=== PATIENT | male | born 1975 | race Caucasian/White ===

== ENCOUNTER 2017-02-06 13:42 | Emergency (ER) | payer MEDICAID ==
[~2017-02-06] VITALS: Ht 160 cm; Wt 71.5 kg
[2017-02-06 13:52] VITALS: Ht 160 cm; Wt 71.5 kg
[2017-02-06 14:57] LABS: URINE BLOOD (Dip) POC 3+ (NEGATIVE)
[2017-02-06] MEDS ORDERED: ONDANSETRON (ODT) 4 MG TAB ODT STA (15:02)
--- NOTE | 2017-02-06 15:05 | ERD ---
ER Documentation Chief Complaint Chief Complaint RIGHT SIDE BACK PAIN SINCE AM HPI 41-year-old male woke up this morning with sharp right-sided low back pain that goes to his mid and flank region starting this morning. The patient states that he woke up with the pain, and had some nausea vomiting this morning and reports hematuria that occurred last week and resolved. He also states that he did some lifting yesterday and he was moving some furniture but denies any injuries at this time. He denies fevers or chills. He denies saddle anesthesia loss of bowel bladder function. ROS All systems reviewed and are negative except as per history of present illness. Medications Home Meds Active Scripts Hydrocodone/Acetaminophen (Armour 5-325 Tablet) 1 Each Tablet, 1 TAB PO Q6H Y for PAIN, #7 TAB Prov:CLARY CHAEVZ PA-C 02/06/17 Ondansetron (Ondansetron Odt) 4 Mg Tab.rapdis, 4 MG PO Q6H Y for NAUSEA AND/OR VOMITING, #10 TAB Prov:CLARY CHAVEZ PA-C 02/06/17 Ibuprofen* (Motrin*) 600 Mg Tab, 600 MG PO Q6, #30 TAB Prov:CLARY CHAVEZ PA-C 02/06/17 Allergies Allergies: Coded Allergies: No Known Allergy (Unverified , 02/06/17) PMhx/Soc History of Surgery: No Anesthesia Reaction: No Hx Neurological Disorder: No Hx Respiratory Disorders: No Hx Cardiac Disorders: No Hx Psychiatric Problems: No Hx Miscellaneous Medical Probl: No Hx Alcohol Use: No Hx Substance Use: No Hx Tobacco Use: Yes Smoking Status: Current some day smoker Physical Exam Vitals Vital Signs Date Time Temp Pulse Resp B/P Pulse Ox O2 Delivery O2 Flow Rate FiO2 02/06/17 13:52 98.9 56 18 142/77 97 Physical Exam General: Well-developed, well-nourished. The patient appears in no acute distress. HEENT: Head is normocephalic, atraumatic. No scleral icterus. Neck: Supple. Nontender. Lungs: Clear to auscultation. Normal air movement. Heart: Regular rate and rhythm. S1 and S2 are normal. No murmurs, gallops, or rubs. Abdomen: Soft, nontender, nondistended. Bowel sounds are normoactive. Back: There is no midline tenderness, no rashes, sacroiliac tenderness on the right side, no CVA tenderness. Extremities: No clubbing or cyanosis. Normal pulses. Moving extremities x 4. No weakness. Neurologic: Alert and oriented 3. No focal deficits. Skin: Normal turgor. No rash or lesions. Result Diagram: 02/06/17 1500 02/06/17 1500 Results 24 hrs Laboratory Tests Test 02/06/17 14:57 02/06/17 15:00 Bedside Urine pH (LAB) 6.5 Bedside Urine Protein (LAB) 2+ Bedside Urine Glucose (UA) Negative Bedside Urine Ketones (LAB) Negative Bedside Urine Blood 3+ Bedside Urine Nitrite (LAB) Negative Bedside Urine Leukocyte Esterase (L Negative White Blood Count 12.710^3/ul Red Blood Count 5.1410^6/ul Hemoglobin 15.3g/dl Hematocrit 44.7% Mean Corpuscular Volume 87.0fl Mean Corpuscular Hemoglobin 29.8pg Mean Corpuscular Hemoglobin Concent 34.2g/dl Red Cell Distribution Width 13.2% Platelet Count 90102^3/UL Mean Platelet Volume 11.1fl Neutrophils % 81.1% Lymphocytes % 12.2% Monocytes % 5.1% Eosinophils % 0.4% Basophils % 0.5% Nucleated Red Blood Cells % 0.0/100WBC Neutrophils # 10.310^3/ul Lymphocytes # 1.510^3/ul Monocytes # 0.710^3/ul Eosinophils # 0.110^3/ul Basophils # 0.110^3/ul Nucleated Red Blood Cells # 0.010^3/ul Sodium Level 142mmol/L Potassium Level 4.6mmol/L Chloride Level 105mmol/L Carbon Dioxide Level 26mmol/L Anion Gap 16 Blood Urea Nitrogen 26mg/dl Creatinine 1.02mg/dl Glucose Level 93mg/dl Calcium Level 9.4mg/dl Total Bilirubin 1.1mg/dl Direct Bilirubin 0.00mg/dl Indirect Bilirubin 1.1mg/dl Aspartate Amino Transf (AST/SGOT) 31IU/L Alanine Aminotransferase (ALT/SGPT) 26IU/L Alkaline Phosphatase 81IU/L Total Protein 8.1g/dl Albumin 4.8g/dl Globulin 3.30g/dl Albumin/Globulin Ratio 1.45 Lipase 14U/L Current Medications Medications (Trade) Dose Ordered Sig/Markus Route PRN Reason Start Time Stop Time Status Last Admin Dose Admin Ibuprofen (Motrin) 600 mg ONCE ONCE PO 02/06/17 15:30 02/06/17 15:31 DC 02/06/17 15:17 Ondansetron HCl (Zofran Odt) 4 mg ONCE STAT ODT 02/06/17 15:02 02/06/17 15:03 DC 02/06/17 15:16 Procedures/MDM ED course: Patient was given ibuprofen and Zofran for symptoms. Decision makin-year-old male comes in with right-sided low back pain across his right flank, possible kidney stone suspected at this time given that there is 3+ blood with history hematuria and vomiting and flank pain. Patient does report that he moved some furniture yesterday, most consistent with this symptoms of a back sprain as well. No signs of cauda equina, or neurologic injury. Lab work is normal, mild leukocytosis is likely to patient due to pain and nausea vomiting. No acute kidney injury, no evidence of infection in the urine. CT abdomen pelvis will be signed out to [place] PA-C. Otherwise his CT is negative for kidney stone, patient may follow-up for gross hematuria/microscopic hematuria with his primary care doctor. Departure Diagnosis: Primary Impression: Flank pain Additional Impression: Microscopic hematuria Condition: CLARY Che PA-C Feb 06, 2017 15:05
[2017-02-06 15:22] LABS: BASOPHIL # 0.1 10^3/ul (0.0-0.1); BASOPHILS % 0.5 % (0.0-2.0); EOSINOPHILS # 0.1 10^3/ul (0.0-0.5); EOSINOPHILS % 0.4 % (0.0-7.0); HEMATOCRIT 44.7 % (42.0-52.0); HEMOGLOBIN 15.3 g/dl (14.0-18.0); LYMPHOCYTES # 1.5 10^3/ul (0.8-2.9); LYMPHOCYTES % 12.2 % (15.0-51.0); MEAN CORPUSCULAR HEMOGLOBIN 29.8 pg (29.0-33.0); MEAN CORPUSCULAR HGB CONC 34.2 g/dl (32.0-37.0); MEAN PLATELET VOLUME 11.1 fl (7.4-10.4); MONOCYTE # 0.7 10^3/ul (0.3-0.9); MONOCYTES % 5.1 % (0.0-11.0); NEUTROPHIL # 10.3 10^3/ul (1.6-7.5); NEUTROPHILS % 81.1 % (39.0-77.0); PLATELET COUNT 148 10^3/UL (140-415); POSITIVE DIFF @See below; RED BLOOD COUNT 5.14 10^6/ul (4.70-6.10); RED CELL DISTRIBUTION WIDTH 13.2 % (11.5-14.5); WHITE BLOOD COUNT 12.7 10^3/ul (4.8-10.8)
[2017-02-06] MEDS ORDERED: IBUPROFEN 600 MG TAB PO ONE (15:30)
[2017-02-06] MEDS ORDERED: HYDR-906 PO (15:34)
[2017-02-06] MEDS ORDERED: ONDA4TAB14 PO (15:34)
[2017-02-06] MEDS ORDERED: IBUP-1542 PO (15:34)
[2017-02-06 15:41] LABS: ALBUMIN 4.8 g/dl (3.3-4.9); ALBUMIN/GLOBULIN RATIO 1.45; BILIRUBIN,INDIRECT 1.1 mg/dl (0-1.1); BILIRUBIN,TOTAL 1.1 mg/dl (0.2-1.3); CALCIUM 9.4 mg/dl (8.4-10.2); CREATININE 1.02 mg/dl (0.61-1.24); POTASSIUM 4.6 mmol/L (3.5-5.1); TOTAL PROTEIN 8.1 g/dl (6.1-8.1)
--- NOTE | 2017-02-06 17:24 | RADRPT ---
PROCEDURE: CT KUB (renal stone survey). CLINICAL INDICATION: Right flank pain TECHNIQUE: CT KUB (Renal Stone Survey) without contrast was performed on a multidetector high-reso lution CT scanner. No IV contrast was administered. Coronal and sagittal reformatted images were o btained from the axial source images. Images were reviewed on a high-resolution PACS workstation. Th e total exam CTDI equals 9.08 mGy and the total exam DLP equals 516.3 mGy-cm. One or more of the following dose reduction techniques were used: - Automated exposure control. - Adjustment of the mA and/or kV according to patient size. - Use of iterative reconstruction technique. COMPARISON: No prior studies are available for comparison. FINDINGS: CT renal stone survey: The kidneys are normal symmetric in size, position, and morphology. there is moderate right hydron ephrosis and moderate right hydroureter associated with a 9 mm right mid to distal ureteral calculus (series 3, image 109; series 602, image 52). There is associated mild right perirenal and periurete ral edema, nonspecific. No radiopaque calculus is seen within either kidney or within the left urete r. The unenhanced, under distended urinary bladder is suboptimally evaluated, but grossly unremark able.. CT abdomen: The lung bases are unremarkable. The visualized heart is within normal limits in size without eviden ce of pericardial effusion or thickening. The liver is normal in size and attenuation without focal mass or intrahepatic biliary dilatation. A punctate calcification located peripherally along the inferior right hepatic lobe is nonspecific bu t may represent sequelae of prior trauma or granulomatous disease. The spleen is normal in size and homogeneous in density. The stomach is partially collapsed, but is grossly unremarkable. The pancr eas as visualized is normal. The gallbladder and biliary tree are unremarkable and there is no evid ence for biliary dilatation. The adrenal glands are symmetric and normal. The aorta is of normal c aliber. There is no retroperitoneal lymphadenopathy. The ottoniel hepatis region is clear. The bowel and mesentery, as visualized, are equally unremarkable. CT pelvis: The small bowel loops situated within the pelvis are unremarkable. A normal-appearing appendix is s een in the right lower quadrant. The pelvic organs are normal. The pelvic sidewalls and inguinal re gions are clear. The sigmoid colon and rectum are all remarkable for sigmoid diverticulosis. No pe lvic mass or adenopathy is seen. No significant free fluid is identified. No acute inflammation is s een. The surrounding osseous structures are remarkable for mild degenerative spondylosis of the spine. N o osteolytic or osteoblastic lesion is detected. IMPRESSION: Moderate right hydronephrosis and right hydroureter associated with a 9 mm right mid to distal urete ral calculus. RPTAT: [facility] Gosia Hood Physician Date Time Electronically viewed and signed by Gosia Hood Physician on 02/06/2017 17:23 RC/
--- NOTE | 2017-02-06 18:11 | EN ---
Date/Time of Note Date/Time of Note DATE: 02/06/17 TIME: 18:09 ER Progress Note This patient was signed out to me by my colleague, Tanisha Petersen PA-C, pending CT scan report. There is no evidence of acute surgical abdominal emergency. There was a stone noted, but there is no total obstruction mentioned. Patient hemodynamically stable for discharge. No evidence to suggest life-threatening pathology at time of discharge. Patient is to follow-up with his primary care physician in 1-2 days and return immediately for any new or worsening symptoms. PROCEDURE: CT KUB (renal stone survey). CLINICAL INDICATION: Right flank pain TECHNIQUE: CT KUB (Renal Stone Survey) without contrast was performed on a multidetector high-resolution CT scanner. No IV contrast was administered. Coronal and sagittal reformatted images were obtained from the axial source images. Images were reviewed on a high-resolution PACS workstation. The total exam CTDI equals 9.08 mGy and the total exam DLP equals 516.3 mGy-cm. One or more of the following dose reduction techniques were used: - Automated exposure control. - Adjustment of the mA and/or kV according to patient size. - Use of iterative reconstruction technique. COMPARISON: No prior studies are available for comparison. FINDINGS: CT renal stone survey: The kidneys are normal symmetric in size, position, and morphology. there is moderate right hydronephrosis and moderate right hydroureter associated with a 9 mm right mid to distal ureteral calculus (series 3, image 109; series 602, image 52). There is associated mild right perirenal and periureteral edema, nonspecific. No radiopaque calculus is seen within either kidney or within the left ureter. The unenhanced, under distended urinary bladder is suboptimally evaluated, but grossly unremarkable.. CT abdomen: The lung bases are unremarkable. The visualized heart is within normal limits in size without evidence of pericardial effusion or thickening. The liver is normal in size and attenuation without focal mass or intrahepatic biliary dilatation. A punctate calcification located peripherally along the inferior right hepatic lobe is nonspecific but may represent sequelae of prior trauma or granulomatous disease. The spleen is normal in size and homogeneous in density. The stomach is partially collapsed, but is grossly unremarkable. The pancreas as visualized is normal. The gallbladder and biliary tree are unremarkable and there is no evidence for biliary dilatation. The adrenal glands are symmetric and normal. The aorta is of normal caliber. There is no retroperitoneal lymphadenopathy. The ottoniel hepatis region is clear. The bowel and mesentery, as visualized, are equally unremarkable. CT pelvis: The small bowel loops situated within the pelvis are unremarkable. A normal- appearing appendix is seen in the right lower quadrant. The pelvic organs are normal. The pelvic sidewalls and inguinal regions are clear. The sigmoid colon and rectum are all remarkable for sigmoid diverticulosis. No pelvic mass or adenopathy is seen. No significant free fluid is identified. No acute inflammation is seen. The surrounding osseous structures are remarkable for mild degenerative spondylosis of the spine. No osteolytic or osteoblastic lesion is detected. IMPRESSION: Moderate right hydronephrosis and right hydroureter associated with a 9 mm right mid to distal ureteral calculus. RPTAT: [facility] Physician Gray Date Time Electronically viewed and signed by Physician Gray on 02/06/2017 17: 23 RUBY WALTER PA-C Feb 06, 2017 18:11
[2017-02-06 19:03] VITALS: BP 128/68; PULSE 68; RESP 18; TEMP 98.7
== END 2017-02-06 19:04 | disposition home or self-care (01) ==
LOC: FTE 13:42
DX: R10.9 Unspecified abdominal pain (principal); R31.29 Other microscopic hematuria; F17.210 Nicotine dependence, cigarettes, uncomplicated
CPT/HCPCS: 74176; 80053; 81003; 83690; 85025; Z7502; Z7610; 99284